=== PATIENT | female | born 1975 | race Caucasian/White ===

== ENCOUNTER 2019-01-01 09:27 | Inpatient (IN) | payer MEDICARE ==
[~2019-01-01] VITALS: Ht 167.6 cm; Wt 118.6 kg
[~2019-01-01 09:27] MED LIST: ACET-704 PO; BENZ1TAB5 PO; CLIN150C14 PO; CLON1TAB PO; DIVA500T2 PO; HYDR-3164 PO; HYDR50CA PO; IPRA3AMP29 NEB; PRAZ1CAP2 PO; TRAM50TA PO; UMEC62.5 IH; VENTOLIN HFA18 GM INH; ZIPR40CA2 PO
[2019-01-01] MEDS ORDERED: HYDROcodone/APAP 5/325MG 1 TAB TABLET PO ONE (10:00)
--- NOTE | 2019-01-01 10:01 | PHYS DOC ---
Past Medical History Past Medical History: Anxiety, Bipolar, Depression, Schizophrenia (ANDRES MAN APRN) Past Surgical History: , Other Additional Past Surgical Histo: left arm (ANDRES MAN APRN) Alcohol Use: Sober Drug Use: None (ANDRES MAN APRN) Attending Signature I have participated in the care of this patient and I have reviewed and agree with all pertinent clinical information above including history, exam, and recommendations. (ASHLEY ROJAS MD) Adult General Chief Complaint Chief Complaint: LOWER EXT PAIN HPI HPI Patient is a 43 year old female that presents with left foot pain after having a surgery on her left foot on Friday. The patient is a diabetic and it appears they did a washout of the foot infection. The patient states she has not been checking her sugars at home, but has been taking Bactrim and Keflex. She states her pain as 8 out of 10 in severity and has not been improved ibuprofen Tylenol at home. He states that she's noticed some drainage from the foot. (ANDRES MAN APRN) Review of Systems Review of Systems Constitutional: Denies fever or chills [] Eyes: Denies change in visual acuity, redness, or eye pain [] HENT: Denies nasal congestion or sore throat [] Respiratory: Denies cough or shortness of breath [] Cardiovascular: No additional information not addressed in HPI [] GI: Denies abdominal pain, nausea, vomiting, bloody stools or diarrhea [] : Denies dysuria or hematuria [] Musculoskeletal: Reports L foot pain Integument: Denies rash or skin lesions [] Neurologic: Denies headache, focal weakness or sensory changes [] Endocrine: Denies polyuria or polydipsia [] Complete systems were reviewed and found to be within normal limits, except as documented in this note. (ANDRES MAN APRN) Current Medications Current Medications Current Medications Medications (Trade) Dose Ordered Sig/Hudson Start Time Stop Time Status Last Admin Dose Admin Acetaminophen/ Hydrocodone Bitart (Lortab 5/325) 1 tab 1X ONCE 01/01/19 10:00 01/01/19 10:07 DC 01/01/19 10:11 1 TAB Sodium Chloride 1,000 ml @ 1,000 mls/hr 1X ONCE 01/01/19 11:15 01/01/19 12:14 DC Vancomycin HCl 2 gm/Sodium Chloride 500 ml @ 250 mls/hr 1X ONCE 01/01/19 12:00 01/01/19 13:59 DC 01/01/19 12:33 250 MLS/HR (ASHLEY ROJAS MD) Allergies Allergies Allergies Coded Allergies Type Severity Reaction Last Updated Verified aspirin Allergy Intermediate 10/16/15 Yes haloperidol Allergy Intermediate 10/16/15 Yes tramadol Allergy Intermediate 12/27/18 Yes (ASHLEY ROJAS MD) Physical Exam Physical Exam Constitutional: Well developed, well nourished, no acute distress, non-toxic appearance. [] HENT: Normocephalic, atraumatic, bilateral external ears normal, oropharynx moist, no oral exudates, nose normal. [] Eyes: PERRLA, EOMI, conjunctiva normal, no discharge. [] Neck: Normal range of motion, no tenderness, supple, no stridor. [] Cardiovascular:Heart rate regular rhythm, no murmur [] Lungs & Thorax: Bilateral breath sounds clear to auscultation [] Abdomen: Bowel sounds normal, soft, no tenderness, no masses, no pulsatile masses. [] Skin: Warm, dry, no erythema, no rash. [] Back: No tenderness, no CVA tenderness. [] Extremities: left foot is tender around left lateral proximal to the 5th digit. There are 2 sutures in the wound and has erythema and tenderness. Neurologic: Alert and oriented X 3, normal motor function, normal sensory function, no focal deficits noted. [] Psychologic: Affect normal, judgement normal, mood normal. [] (ANDRES MAN APRN) Current Patient Data Vital Signs Vital Signs Date Time Temp Pulse Resp B/P (MAP) Pulse Ox O2 Delivery O2 Flow Rate FiO2 01/01/19 12:00 82 16 168/112 (130) 96 Room Air 01/01/19 09:30 98.0 98.0 (ASHLEY ROJAS MD) Lab Values Laboratory Tests Test 01/01/19 10:27 White Blood Count 8.1 x10^3/uL (4.0-11.0) Red Blood Count 3.78 x10^6/uL (3.50-5.40) Hemoglobin 12.7 g/dL (12.0-15.5) Hematocrit 36.3 % (36.0-47.0) Mean Corpuscular Volume 96 fL (79-100) Mean Corpuscular Hemoglobin 34 pg (25-35) Mean Corpuscular Hemoglobin Concent 35 g/dL (31-37) Red Cell Distribution Width 13.4 % (11.5-14.5) Platelet Count 217 x10^3/uL (140-400) Neutrophils (%) (Auto) 58 % (31-73) Lymphocytes (%) (Auto) 26 % (24-48) Monocytes (%) (Auto) 13 % (0-9) H Eosinophils (%) (Auto) 2 % (0-3) Basophils (%) (Auto) 1 % (0-3) Neutrophils # (Auto) 4.7 x10^3/uL (1.8-7.7) Lymphocytes # (Auto) 2.1 x10^3/uL (1.0-4.8) Monocytes # (Auto) 1.0 x10^3/uL (0.0-1.1) Eosinophils # (Auto) 0.2 x10^3/uL (0.0-0.7) Basophils # (Auto) 0.1 x10^3/uL (0.0-0.2) Sodium Level 141 mmol/L (136-145) Potassium Level 4.0 mmol/L (3.5-5.1) Chloride Level 104 mmol/L (98-107) Carbon Dioxide Level 27 mmol/L (21-32) Anion Gap 10 (6-14) Blood Urea Nitrogen 7 mg/dL (7-20) Creatinine 0.7 mg/dL (0.6-1.0) Estimated GFR (Cockcroft-Gault) 92.2 BUN/Creatinine Ratio 10 (6-20) Glucose Level 179 mg/dL (70-99) H Lactic Acid Level 2.3 mmol/L (0.4-2.0) H Calcium Level 9.4 mg/dL (8.5-10.1) Total Bilirubin 0.2 mg/dL (0.2-1.0) Aspartate Amino Transferase (AST) 15 U/L (15-37) Alanine Aminotransferase (ALT) 27 U/L (14-59) Alkaline Phosphatase 108 U/L (46-116) Total Protein 7.2 g/dL (6.4-8.2) Albumin 3.3 g/dL (3.4-5.0) L Albumin/Globulin Ratio 0.8 (1.0-1.7) L Laboratory Tests 01/01/19 10:27 Laboratory Tests 01/01/19 10:27 (ASHLEY ROJAS MD) Lab Values Laboratory Tests Test 01/01/19 10:27 White Blood Count 8.1 x10^3/uL (4.0-11.0) Red Blood Count 3.78 x10^6/uL (3.50-5.40) Hemoglobin 12.7 g/dL (12.0-15.5) Hematocrit 36.3 % (36.0-47.0) Mean Corpuscular Volume 96 fL (79-100) Mean Corpuscular Hemoglobin 34 pg (25-35) Mean Corpuscular Hemoglobin Concent 35 g/dL (31-37) Red Cell Distribution Width 13.4 % (11.5-14.5) Platelet Count 217 x10^3/uL (140-400) Neutrophils (%) (Auto) 58 % (31-73) Lymphocytes (%) (Auto) 26 % (24-48) Monocytes (%) (Auto) 13 % (0-9) H Eosinophils (%) (Auto) 2 % (0-3) Basophils (%) (Auto) 1 % (0-3) Neutrophils # (Auto) 4.7 x10^3/uL (1.8-7.7) Lymphocytes # (Auto) 2.1 x10^3/uL (1.0-4.8) Monocytes # (Auto) 1.0 x10^3/uL (0.0-1.1) Eosinophils # (Auto) 0.2 x10^3/uL (0.0-0.7) Basophils # (Auto) 0.1 x10^3/uL (0.0-0.2) Sodium Level 141 mmol/L (136-145) Potassium Level 4.0 mmol/L (3.5-5.1) Chloride Level 104 mmol/L (98-107) Carbon Dioxide Level 27 mmol/L (21-32) Anion Gap 10 (6-14) Blood Urea Nitrogen 7 mg/dL (7-20) Creatinine 0.7 mg/dL (0.6-1.0) Estimated GFR (Cockcroft-Gault) 92.2 BUN/Creatinine Ratio 10 (6-20) Glucose Level 179 mg/dL (70-99) H Lactic Acid Level 2.3 mmol/L (0.4-2.0) H Calcium Level 9.4 mg/dL (8.5-10.1) Total Bilirubin 0.2 mg/dL (0.2-1.0) Aspartate Amino Transferase (AST) 15 U/L (15-37) Alanine Aminotransferase (ALT) 27 U/L (14-59) Alkaline Phosphatase 108 U/L (46-116) Total Protein 7.2 g/dL (6.4-8.2) Albumin 3.3 g/dL (3.4-5.0) L Albumin/Globulin Ratio 0.8 (1.0-1.7) L Laboratory Tests 01/01/19 10:27 Laboratory Tests 01/01/19 10:27 (ANDRES MAN APRN) EKG EKG [] (ANDRES MAN APRN) Radiology/Procedures Radiology/Procedures [][facility] [address] [place] [address] IMAGING REPORT Signed PATIENT: VELIA TURPIN ACCOUNT: [id number] : 1975 LOCATION: ER AGE: 43 SEX: F EXAM STATUS: REG ER ORD. PHYSICIAN: ANDRES MAN APRN REASON: foot pain, infection, hx of diabetes PROCEDURE: FOOT LEFT 3V EXAM: 3 views left foot DATE: 01/01/2019 9:56 AM INDICATION: Foot pain, infection, history of diabetes COMPARISON: No Prior FINDINGS/ IMPRESSION: 1. Soft tissue swelling and irregularity is seen overlying the left hallux MTP joint, likely soft tissue ulceration. 2. No definite subjacent erosive/destructive change or periostitis to suggest acute osteomyelitis 3. No acute fracture or dislocation. Electronically signed by: Dmitry Ackerman MD (01/01/2019 10:26 AM) [facility] DICTATED and SIGNED BY: DMITRY ACKERMAN MD DATE: 01/01/19 1026 (ANDRES MAN APRN) Course & Med Decision Making Course & Med Decision Making Pertinent Labs and Imaging studies reviewed. (See chart for details) Pt had a cyst over her left great toe for about 5 months. She developed tendon i nfection, abscess and started draining, per her report. She was seen at [facility] wound care where an I&D is performed. She has noticed increasing pain and drainage which prompted her visit here where she had a procedure to have it cleaned out. She states she is still having drainage and pain. Will get labs and x-ray to evaluate. Labs show a lactic acid of 2.3. Will give Vanc and 2,000 mL of NS to meet 30mL/kg fluids. Used ideal body weight of [address] Vyas who agrees to admission. Will consult Ortho and order Meropenum on admission. (ANDRES MAN APRN) Dragon Disclaimer Dragon Disclaimer This electronic medical record was generated, in whole or in part, using a voice recognition dictation system. (ANDRES MAN APRN) Departure Departure Impression: Primary Impression: Diabetic foot infection Disposition: ADMITTED INPATIENT Admitting Physician: Monster Vyas (ANDRES MAN APRN) Condition: STABLE Referrals: TERRENCE ALEJANDRA MD (PCP) Date and Time of Reassessment Date: Jan 01, 2019 Time: 11:23 (ANDRES MAN APRN) Fluid Challenge Is the fluid challenge complet: No IBW Target Volume Used: Yes BMI > 30: Yes (ANDRES MAN APRN) Vital Signs Vital Signs: Vital Signs Date Time Temp Pulse Resp B/P (MAP) Pulse Ox O2 Delivery O2 Flow Rate FiO2 01/01/19 12:00 82 16 168/112 (130) 96 Room Air 01/01/19 09:30 98.0 98.0 (ASHLEY ROJAS MD) Temperature Source: Oral (ANDRES MAN APRN) Respirations Respiratory Effort: Normal, Non-Labored Respiratory Pattern: Normal (ANDRES MAN APRN) Cardiovascular Pulse Rhythm: Regular Heart: Nml rate, reg. rhythm (ANDRES MAN APRN) Lung Sounds Breath Sounds: Clear (ANDRES MAN APRN) Capillary Refil Capillary Refill: Rt Hand < 3 seconds (ANDRES MAN APRN) Peripheral Pulse Pulse Location: Radial Pulse Strength: Normal (2+) Pulse Assessment Method: NIBP (ANDRES MAN APRN) Integumentary Skin: Warm, Dry Skin Moisture: Dry Skin Turgor: Normal Skin Color: warm, dry Fingernail Color: WNL (ANDRES MAN APRN) ANDRES MAN APRN Jan 01, 2019 10:01 ASHLEY ROJAS MD Jan 02, 2019 09:30
--- NOTE | 2019-01-01 10:29 | RAD ---
EXAM: 3 views left foot DATE: 01/01/2019 9:56 AM INDICATION: Foot pain, infection, history of diabetes COMPARISON: No Prior FINDINGS/ IMPRESSION: 1. Soft tissue swelling and irregularity is seen overlying the left hallux MTP joint, likely soft tissue ulceration. 2. No definite subjacent erosive/destructive change or periostitis to suggest acute osteomyelitis 3. No acute fracture or dislocation. Electronically signed by: Dmitry Beltran MD (01/01/2019 10:26 AM) [facility]
[2019-01-01 10:34] LABS: BASO # 0.1 x10^3/uL (0.0-0.2); BASO % 1 % (0-3); EOS # 0.2 x10^3/uL (0.0-0.7); EOS % 2 % (0-3); HEMATOCRIT 36.3 % (36.0-47.0); HEMOGLOBIN 12.7 g/dL (12.0-15.5); LYMPH # 2.1 x10^3/uL (1.0-4.8); LYMPH % 26 % (24-48); MEAN CORPUSCULAR HEMOGLOBIN 34 pg (25-35); MEAN CORPUSCULAR HGB CONC 35 g/dL (31-37); MEAN CORPUSCULAR VOLUME 96 fL (79-100); MONO % 13 % (0-9); NEUT # 4.7 x10^3/uL (1.8-7.7); NEUT % 58 % (31-73); PLATELET COUNT 217 x10^3/uL (140-400); RED BLOOD COUNT 3.78 x10^6/uL (3.50-5.40); RED CELL DISTRIBUTION WIDTH 13.4 % (11.5-14.5); WHITE BLOOD COUNT 8.1 x10^3/uL (4.0-11.0)
[2019-01-01 10:55] LABS: CALCIUM 9.4 mg/dL (8.5-10.1); CREATININE 0.7 mg/dL (0.6-1.0); GFR 92.2
[2019-01-01 11:01] LABS: ALBUMIN 3.3 g/dL (3.4-5.0); ALBUMIN/GLOBULIN RATIO 0.8 (1.0-1.7); TOTAL BILIRUBIN 0.2 mg/dL (0.2-1.0); TOTAL PROTEIN 7.2 g/dL (6.4-8.2)
[2019-01-01] MEDS ORDERED: IV NORMAL SALINE 1000ML BAG 1,000 ML IV ONE ×2 (11:15)
[2019-01-01] MEDS ORDERED: VANCOMYCIN 2 GM in IV NORMAL SALINE 500ML BAG 500 ML IV ONE (12:00)
[2019-01-01] MEDS ORDERED: ONDANSETRON PF 4 MG/2 ML VIAL. IV PRN (12:30)
[2019-01-01] MEDS ORDERED: MORPHINE SULFATE 2 MG/ML VIAL. IV PRN (12:30)
[2019-01-01 13:45] VITALS: BP 157/99
[2019-01-01] MEDS ORDERED: IPRA3AMP29 NEB (14:35)
[2019-01-01] MEDS ORDERED: METF10007 PO (14:38)
[2019-01-01] MEDS ORDERED: INSU100I13 SQ (14:38)
--- NOTE | 2019-01-01 15:13 | NUR ---
Wound care: Patient seen per wound care consult. Patient has a left medial foot surgical incision from recent surgery [employer]ARCH[employer]ER. The incision is approximated with sutures. There is no drainage at this time. Incision cleansed with Chloraprep and recommended foam dressing while in hospital. There are no open wounds at this time. Wound care will sign off at this time. Bed lowered and call light in reach.
[2019-01-01] MEDS: HYDROcodone/APAP 5/325MG 1 TAB TABLET PO PRN ×2 (15:28→20:03)
[2019-01-01] MEDS: clonazePAM 0.5 MG TABLET PO PRN ×2 (15:28→21:49)
[2019-01-01] MEDS: MEROPENEM 1 GM in IV NORMAL SALINE 100ML 100 ML IV SCH ×2 (15:30→22:12)
[2019-01-01] MEDS ORDERED: ALBUTEROL SULFATE 2.5 MG/3 ML NEBU. NEB SCH (16:00)
[2019-01-01] MEDS: IPRATRPIUM/ALBUTEROL 0.5/2.5MG 3 ML NEBU. NEB SCH ×2 (16:16→20:10)
--- NOTE | 2019-01-01 16:35 | NUR ---
Pt transferred to room 430. Report called to ABBIE [place]. Pt transported via wheelchair
--- NOTE | 2019-01-01 16:40 | NUR ---
Received patient transfer from [address] [place] [address], report from ABBIE Mejia, principal technical writer agrees with head to toe assessment charted, will continue to monitor patient.
[2019-01-01] MEDS: metFORMIN 500 MG TABLET PO SCH (16:50)
[2019-01-01] MEDS ORDERED: NON FORMULARY ITEM (Albuterol Sulfate (Ventolin Hfa Inhaler) 2 PUFF) INH SCH (17:00)
[2019-01-01 19:00] VITALS: BP 133/73
[2019-01-01] MEDS: PRAZOSIN 1 MG CAPSULE. PO SCH (20:01)
[2019-01-01] MEDS: DIVALPROEX DELAYED RELEASE 500 MG TABLET.DR. PO SCH (20:02)
[2019-01-01] MEDS: hydrOXYzine 25 MG TABLET PO SCH (20:02)
[2019-01-01] MEDS: ZIPRASIDONE 20 MG CAPSULE PO SCH (20:02)
[2019-01-01] MEDS: BENZTROPINE MESYLATE 1 MG TABLET. PO SCH (20:02)
[2019-01-01] MEDS ORDERED: IPRATRPIUM/ALBUTEROL 0.5/2.5MG 3 ML NEBU. NEB SCH (21:00)
[2019-01-01] MEDS: INSULIN GLARGINE SYRINGE. SQ SCH (21:58)
[2019-01-01 23:03] VITALS: BP 127/72
[2019-01-02 03:09] VITALS: BP 116/67
[2019-01-02] MEDS: MEROPENEM 1 GM in IV NORMAL SALINE 100ML 100 ML IV SCH (05:56)
[2019-01-02] MEDS: clonazePAM 0.5 MG TABLET PO PRN ×2 (06:49→12:09)
[2019-01-02] MEDS: HYDROcodone/APAP 5/325MG 1 TAB TABLET PO PRN ×3 (06:50→18:04)
[2019-01-02 07:00] VITALS: BP 135/83
[2019-01-02] MEDS: IPRATRPIUM/ALBUTEROL 0.5/2.5MG 3 ML NEBU. NEB SCH ×4 (07:50→19:46)
[2019-01-02] MEDS ORDERED: NON FORMULARY ITEM (Umeclidinium Bromide (Incruse Ellipta) 62.5 MCG) IH SCH (09:00)
[2019-01-02] MEDS: ZIPRASIDONE 20 MG CAPSULE PO SCH ×2 (09:04→21:10)
[2019-01-02] MEDS: BENZTROPINE MESYLATE 1 MG TABLET. PO SCH ×2 (09:05→21:11)
[2019-01-02] MEDS: metFORMIN 500 MG TABLET PO SCH ×2 (09:05→17:10)
[2019-01-02] MEDS: DIVALPROEX DELAYED RELEASE 500 MG TABLET.DR. PO SCH ×2 (09:05→21:10)
[2019-01-02 11:00] VITALS: BP 150/81
[2019-01-02] MEDS: LINEZOLID 600 MG TABLET PO SCH ×2 (12:09→21:10)
--- NOTE | 2019-01-02 12:11 | PDOC ---
Provider Note Provider Note [id number] GORDO CLAYTON MD Jan 02, 2019 12:11
--- NOTE | 2019-01-02 12:24 | HP ---
ADMIT DATE: 01/02/2019 CHIEF COMPLAINT: Foot wound pain. HISTORY OF PRESENT ILLNESS: A 43-year-old white female, who about a week ago, had incision and drainage at [facility] ER of her left foot wound that appeared to be a sebaceous cyst that had gotten infected and perhaps ruptured. Wound culture was not done at that time and she was placed on Keflex and Bactrim, but failed to improve. She was admitted, given IV vancomycin, followed by Zyvox and then Zosyn and Dr. Toth did further debridement on the remaining cyst wall and closure of the wound. She went home on Keflex and Bactrim about 3-4 days prior to this admission, but states the pain had be getting slowly worse since then. She is a newly-discovered diabetic, now is on Lantus 50 units and blood sugars have been much better at home in the last week. ER evaluation showed again the left foot x-ray did not show any signs of osteomyelitis and she feels her foot is somewhat better since admission. PAST HISTORY: All meds documented in the previous records. She is a psychiatric patient. She also takes metformin for her diabetes along with the Lantus. ALLERGIES: TO ASPIRIN, HALDOL AND TRAMADOL are noted. SOCIAL HISTORY: Pretty heavy smoker. Single. Not employed. Nondrinker. FAMILY HISTORY: Unremarkable. REVIEW OF SYSTEMS: No other complaints. OBJECTIVE: ENT: All within normal limits. NECK: No masses, nodes, or bruits. LUNGS: Clear. CARDIOVASCULAR: Regular rate. No murmur. ABDOMEN: Obese, soft, nontender. EXTREMITIES: The relatively clean-looking wound on the left medial foot medial to the first MTP joint shows no fluctuance or drainage expressible and only mild periwound redness and tenderness. Good pedal pulses. No other significant findings. No streaking or adenopathy. NEUROLOGIC: Physiologic. ASSESSMENT: Infected left foot sebaceous cyst, but appears to generally be doing well despite her tobacco use and then poorly-controlled diabetes until recently. PLAN: We will add topical Polysporin and continue Zyvox and meropenem for now pending secondary cultures, which were done in the ER. Consider MRI for the possibility of osteomyelitis, but this really appears to be limited to soft tissue at this time. GORDO CLAYTON MD DR: Savannah JOB#: [id number] / [id number]
--- NOTE | 2019-01-02 13:06 | PDOC ---
Provider Note Provider Note change merrem to kinjalsyn re interaction w/ with GORDO Benjamin MD Jan 02, 2019 13:05
[2019-01-02] MEDS: BACITRACIN/POLYMYXIN B TOPICAL OINT 15GM TUBE. TP SCH ×2 (14:21→21:21)
[2019-01-02] MEDS: PIPERACILLIN/TAZOBACTAM 3.375 GM in IV NORMAL SALINE 50ML 50 ML IV SCH ×2 (14:22→18:05)
[2019-01-02 15:00] VITALS: BP 144/89
--- NOTE | 2019-01-02 15:55 | PDOC2 ---
CONSULT Date of Consult Date of Consult DATE: 01/02/19 TIME: 15:53 Reason for Consult Reason for Consult: Left great toe infection Identification/Chief Complaint Chief Complaint Left foot pain and drainage Source Source: Chart review, Patient History of Present Illness Reason for Visit: This 43-year-old woman had surgery about [address] Toth for a left great toe infection. She went home with oral antibiotics as well as intravenous antibiotics through a PICC. She had increasing pain and swelling and was readmitted. She probably has not been elevating her foot very much. Just being in the hospital one night she notices some improvement Past Medical History Cardiovascular: No pertinent hx Pulmonary: COPD GI: No pertinent hx Renal/: Urinary Incontinence Endocrine: No pertinent hx Past Surgical History Past Surgical History: , Other Family History Family History: Heart Disease Social History ALCOHOL: occassional Drugs: None Current Problem List Problem List Problems Medical Problems: (1) Diabetic foot infection Status: Acute Current Medications Current Medications Current Medications Acetaminophen/ Hydrocodone Bitart (Lortab 5/325) 1 tab 1X ONCE PO Last administered on 01/01/19at 10:11; Start 01/01/19 at 10:00; Stop 01/01/19 at 10:07; Status DC Sodium Chloride 1,000 ml @ 1,000 mls/hr 1X ONCE IV Last administered on 01/01/19at 12:33; Start 01/01/19 at 11:15; Stop 01/01/19 at 12:14; Status DC Vancomycin HCl 2 gm/Sodium Chloride 500 ml @ 250 mls/hr 1X ONCE IV Last administered on 01/01/19at 12:33; Start 01/01/19 at 12:00; Stop 01/01/19 at 13:59; Status DC Sodium Chloride 1,000 ml @ 1,000 mls/hr 1X ONCE IV ; Start 01/01/19 at 11:15; Stop 01/01/19 at 12:14; Status DC Meropenem 1 gm/ Sodium Chloride 100 ml @ 200 mls/hr Q8HRS IV Last administered on 01/02/19at 05:56; Start 01/01/19 at 13:00; Stop 01/02/19 at 12:25; Status DC Ondansetron HCl (Zofran) 4 mg PRN Q8HRS PRN IV NAUSEA/VOMITING; Start 01/01/19 at 12:30; Stop 01/02/19 at 12:29; Status DC Morphine Sulfate (Morphine Sulfate) 2 mg PRN Q2HR PRN IV PAIN; Start 01/01/19 at 12:30; Stop 01/01/19 at 14:59; Status DC Benztropine Mesylate (Cogentin) 1 mg BID PO Last administered on 01/02/19 09:05; Start 01/01/19 at 21:00 Divalproex Sodium (Depakote) 1,000 mg HS PO Last administered on 01/01/19 20:02; Start 01/01/19 at 21:00 Divalproex Sodium (Depakote) 500 mg DAILY PO Last administered on 01/02/19 09:05; Start 01/02/19 at 09:00 Albuterol/ Ipratropium (Duoneb) 3 ml BID NEB ; Start 01/01/19 at 21:00; Status Cancel Prazosin HCl (Minipress) 1 mg HS PO Last administered on 01/01/19 20:01; Start 01/01/19 at 21:00 Non-Formulary Medication (Albuterol Sulfate (Ventolin Hfa Inhaler)) 2 puff QID I NH ; Start 01/01/19 at 17:00; Status UNV Clonazepam (KlonoPIN) 1 mg PRN BID PRN PO PSYCHOSIS Last administered on 01/02/19 12:09; Start 01/01/19 at 15:15 Hydroxyzine HCl (Atarax) 100 mg QHS PO Last administered on 01/01/19 20:02; Start 01/01/19 at 21:00 Insulin Glargine (Lantus Syringe) 50 unit QHS SQ Last administered on 01/01/19 21:58; Start 01/01/19 at 21:00 Metformin HCl (Glucophage) 1,000 mg BIDWMEALS PO Last administered on 01/02/19 09:05; Start 01/01/19 at 17:00 Non-Formulary Medication (Umeclidinium [place] (Incruse Ellipta)) 62.5 mcg DAILY IH ; Start 01/02/19 at 09:00; Status UNV Ziprasidone (Geodon) 40 mg BID PO Last administered on 01/02/19 09:04; Start 01/01/19 at 21:00 Acetaminophen/ Hydrocodone Bitart (Lortab 5/325) 1 tab PRN QID PRN PO MODERATE PAIN Last administered on 01/02/19at 12:09; Start 01/01/19 at 15:00 Albuterol Sulfate (Ventolin Neb Soln) 2.5 mg RTQID NEB ; Start 01/01/19 at 16:00; Status UNV Albuterol/ Ipratropium (Duoneb) 3 ml RTQID NEB Last administered on 01/02/19at 11:37; Start 01/01/19 at 16:00 Linezolid (Zyvox) 600 mg BID PO Last administered on 01/02/19 12:09; Start 01/02/19 at 12:30 Bacitracin/ Polymyxin B Sulfate (Polysporin) 1 elías BID TP Last administered on 01/02/19 14:21; Start 01/02/19 at 12:30 Piperacillin Sod/ Tazobactam Sod 3.375 gm/Sodium Chloride 50 ml @ 100 mls/hr Q6HRS IV Last administered on 01/02/19at 14:22; Start 01/02/19 at 13:00 Lactobacillus Rhamnosus (Culturelle) 1 cap BID PO ; Start 01/02/19 at 21:00 Active Scripts Active Reported Lantus Solostar (Insulin Glargine,Hum.rec.anlog) 100 Unit/1 Ml Insuln.pen 50 Un it SQ QHS Metformin Hcl 1,000 Mg Tablet 1,000 Mg PO BIDWMEALS Duoneb 0.5-3(2.5) Mg/3 Ml (Albuterol/Ipratropium) 3 Ml Ampul.neb 3 Ml NEB BID Ventolin Hfa Inhaler (Albuterol Sulfate) 18 Gm Hfa.aer.ad 2 Puff INH QID Incruse Ellipta (Umeclidinium [place]) 62.5 Mcg Blst.w.dev 62.5 Mcg IH DAILY Vistaril (Hydroxyzine Pamoate) 50 Mg Capsule 100 Mg PO HS Benztropine Mesylate 1 Mg Tablet 1 Mg PO BID Geodon (Ziprasidone Hcl) 40 Mg Capsule 1 Cap PO BID Klonopin (Clonazepam) 1 Mg Tablet 1 Mg PO BID PRN Prazosin Hcl 1 Mg Capsule 1 Mg PO HS Depakote (Divalproex Sodium) 500 Mg Tablet. 1,000 Mg PO HS Depakote (Divalproex Sodium) 500 Mg Tablet. 500 Mg PO DAILY Allergies Allergies: Coded Allergies: aspirin (Verified Allergy, Intermediate, 10/16/15) dizzy haloperidol (Verified Allergy, Intermediate, 10/16/15) tramadol (Verified Allergy, Intermediate, 12/27/18) Physical Exam Extremities: Other (I examined the left great toe and remove the dressing. The sutured incision is intact with some eschar but no drainage. There is minimal swelling, minimal erythema, this all appears to be healing without complication. I don't see any need for surgical drainage at this time) Vitals VITALS Vital Signs Date Time Temp Pulse Resp B/P (MAP) Pulse Ox O2 Delivery O2 Flow Rate FiO2 01/02/19 13:43 97 01/02/19 11:38 Room Air 01/02/19 11:00 97.7 86 16 150/81 (104) 97.7 Labs Labs Laboratory Tests Test 01/01/19 10:27 01/01/19 14:25 01/01/19 16:48 01/01/19 20:31 White Blood Count 8.1 x10^3/uL (4.0-11.0) Red Blood Count 3.78 x10^6/uL (3.50-5.40) Hemoglobin 12.7 g/dL (12.0-15.5) Hematocrit 36.3 % (36.0-47.0) Mean Corpuscular Volume 96 fL (79-100) Mean Corpuscular Hemoglobin 34 pg (25-35) Mean Corpuscular Hemoglobin Concent 35 g/dL (31-37) Red Cell Distribution Width 13.4 % (11.5-14.5) Platelet Count 217 x10^3/uL (140-400) Neutrophils (%) (Auto) 58 % (31-73) Lymphocytes (%) (Auto) 26 % (24-48) Monocytes (%) (Auto) 13 % (0-9) Eosinophils (%) (Auto) 2 % (0-3) Basophils (%) (Auto) 1 % (0-3) Neutrophils # (Auto) 4.7 x10^3/uL (1.8-7.7) Lymphocytes # (Auto) 2.1 x10^3/uL (1.0-4.8) Monocytes # (Auto) 1.0 x10^3/uL (0.0-1.1) Eosinophils # (Auto) 0.2 x10^3/uL (0.0-0.7) Basophils # (Auto) 0.1 x10^3/uL (0.0-0.2) Sodium Level 141 mmol/L (136-145) Potassium Level 4.0 mmol/L (3.5-5.1) Chloride Level 104 mmol/L (98-107) Carbon Dioxide Level 27 mmol/L (21-32) Anion Gap 10 (6-14) Blood Urea Nitrogen 7 mg/dL (7-20) Creatinine 0.7 mg/dL (0.6-1.0) Estimated GFR (Cockcroft-Gault) 92.2 BUN/Creatinine Ratio 10 (6-20) Glucose Level 179 mg/dL (70-99) Lactic Acid Level 2.3 mmol/L (0.4-2.0) 2.1 mmol/L (0.4-2.0) Calcium Level 9.4 mg/dL (8.5-10.1) Total Bilirubin 0.2 mg/dL (0.2-1.0) Aspartate Amino Transf (AST/SGOT) 15 U/L (15-37) Alanine Aminotransferase (ALT/SGPT) 27 U/L (14-59) Alkaline Phosphatase 108 U/L (46-116) Total Protein 7.2 g/dL (6.4-8.2) Albumin 3.3 g/dL (3.4-5.0) Albumin/Globulin Ratio 0.8 (1.0-1.7) Glucose (Fingerstick) 152 mg/dL (70-99) 161 mg/dL (70-99) Test 01/02/19 07:52 01/02/19 11:18 Glucose (Fingerstick) 150 mg/dL (70-99) 153 mg/dL (70-99) Laboratory Tests Test 01/01/19 16:48 01/01/19 20:31 01/02/19 07:52 01/02/19 11:18 Glucose (Fingerstick) 152 mg/dL (70-99) 161 mg/dL (70-99) 150 mg/dL (70-99) 153 mg/dL (70-99) Assessment/Plan Assessment/Plan Left great toe infection. I believe hospitalization will help this, which will help to enforce the elevation and ice, and make sure she gets the antibiotics on time. I don't see the need for additional surgery at this time. She should remain nonweightbearing on the toe. ROWAN MCGRAW MD Jan 02, 2019 15:55
[2019-01-02 19:00] VITALS: BP 180/90
[2019-01-02] MEDS: LACTOBACILLUS RHAMNOSUS GG 1 CAPSULE. PO SCH (21:10)
[2019-01-02] MEDS: hydrOXYzine 25 MG TABLET PO SCH (21:10)
[2019-01-02] MEDS: PRAZOSIN 1 MG CAPSULE. PO SCH (21:10)
[2019-01-02] MEDS: INSULIN GLARGINE SYRINGE. SQ SCH (21:19)
[2019-01-02 23:00] VITALS: BP 142/84
[2019-01-03] MEDS: PIPERACILLIN/TAZOBACTAM 3.375 GM in IV NORMAL SALINE 50ML 50 ML IV SCH ×4 (00:22→17:23)
[2019-01-03] MEDS: HYDROcodone/APAP 5/325MG 1 TAB TABLET PO PRN ×4 (00:28→18:14)
[2019-01-03 03:00] VITALS: BP 132/81
[2019-01-03] MEDS: clonazePAM 0.5 MG TABLET PO PRN ×2 (05:27→12:18)
[2019-01-03 07:00] VITALS: BP 130/80
[2019-01-03] MEDS: IPRATRPIUM/ALBUTEROL 0.5/2.5MG 3 ML NEBU. NEB SCH ×4 (07:31→19:25)
[2019-01-03] MEDS: BACITRACIN/POLYMYXIN B TOPICAL OINT 15GM TUBE. TP SCH ×2 (08:30→20:46)
[2019-01-03] MEDS: ZIPRASIDONE 20 MG CAPSULE PO SCH ×2 (08:31→20:44)
[2019-01-03] MEDS: LACTOBACILLUS RHAMNOSUS GG 1 CAPSULE. PO SCH ×2 (08:42→20:43)
[2019-01-03] MEDS: BENZTROPINE MESYLATE 1 MG TABLET. PO SCH ×2 (08:42→20:44)
[2019-01-03] MEDS: metFORMIN 500 MG TABLET PO SCH ×2 (08:42→17:21)
[2019-01-03] MEDS: DIVALPROEX DELAYED RELEASE 500 MG TABLET.DR. PO SCH ×2 (08:42→20:43)
[2019-01-03] MEDS: LINEZOLID 600 MG TABLET PO SCH ×2 (08:42→20:44)
--- NOTE | 2019-01-03 10:01 | PDOC ---
Provider Note Provider Note vss, no temp, glucose good on 50 u- no cult yet- wound looks good- will cont zyvox/zosyn another day, likely dc in am, cont topical polysporin GORDO CLAYTON MD Jan 03, 2019 10:01
[2019-01-03 11:00] VITALS: BP 157/87
[2019-01-03 15:00] VITALS: BP 123/75
[2019-01-03 19:00] VITALS: BP 159/94
[2019-01-03] MEDS: PRAZOSIN 1 MG CAPSULE. PO SCH (20:44)
[2019-01-03] MEDS: hydrOXYzine 25 MG TABLET PO SCH (20:44)
[2019-01-03] MEDS: INSULIN GLARGINE SYRINGE. SQ SCH (20:50)
[2019-01-03 23:00] VITALS: BP 126/78
[2019-01-04] MEDS: HYDROcodone/APAP 5/325MG 1 TAB TABLET PO PRN ×3 (00:22→08:14)
[2019-01-04] MEDS: PIPERACILLIN/TAZOBACTAM 3.375 GM in IV NORMAL SALINE 50ML 50 ML IV SCH ×2 (00:24→06:07)
[2019-01-04] MEDS: clonazePAM 0.5 MG TABLET PO PRN ×2 (00:24→08:14)
[2019-01-04 03:00] VITALS: BP 136/78
[2019-01-04 07:00] VITALS: BP 125/81
[2019-01-04] MEDS: ZIPRASIDONE 20 MG CAPSULE PO SCH (08:13)
[2019-01-04] MEDS: LACTOBACILLUS RHAMNOSUS GG 1 CAPSULE. PO SCH (08:13)
[2019-01-04] MEDS: metFORMIN 500 MG TABLET PO SCH (08:14)
[2019-01-04] MEDS: BENZTROPINE MESYLATE 1 MG TABLET. PO SCH (08:14)
[2019-01-04] MEDS: DIVALPROEX DELAYED RELEASE 500 MG TABLET.DR. PO SCH (08:14)
[2019-01-04] MEDS: IPRATRPIUM/ALBUTEROL 0.5/2.5MG 3 ML NEBU. NEB SCH (08:17)
[2019-01-04] MEDS: BACITRACIN/POLYMYXIN B TOPICAL OINT 15GM TUBE. TP SCH (08:20)
--- NOTE | 2019-01-04 08:23 | PDOC ---
Provider Note Provider Note [id number] GORDO CLAYTON MD Jan 04, 2019 08:23
--- NOTE | 2019-01-04 09:04 | DS ---
DATE OF DISCHARGE: 01/04/2019 HOSPITAL SUMMARY: A 43-year-old white female who recently had an infected sebaceous cyst opened and drained and then debrided on the left medial foot, came back in with increasing foot pain despite oral antibiotic therapy. Wound cultures had never been obtained after the initial surgery and no growth have been obtained. Subsequent stool pathogens are not known. CBC and chemistry profile all are within normal limits and blood sugar control was excellent control with newly diagnosed diabetes with insulin and metformin. Wound culture pending, but no organisms are seen on Gram stain. She had 2 days of oral Zyvox and IV Zosyn and wound is still looking good with the addition of Polysporin cream and she is afebrile. Dr. Glez has seen as well and is comfortable with outpatient care and no further intervention with sutures remaining in place. FINAL DIAGNOSES: 1. Cellulitis and abscess of left medial foot. 2. Insulin-dependent diabetes mellitus. OPERATIONS, PROCEDURES, COMPLICATIONS: None. CONSULTATIONS: Dr. Glez. DISPOSITION: Continues on oral Septra and Keflex; metformin and Lantus for diabetes and all psych meds the same. Office followup with Dr. Vyas in 4-5 days. Suture out probably in about another 5 days as well. GORDO VYAS MD DR: UMER/jose JOB#: [id number] / [id number]
--- NOTE | 2019-01-04 12:00 | NUR ---
Discharge: Pt DC to home per facility transportation. All belongings returned with pt, including 2 packs of cigarettes. IV DC'ed by Izabella LEIVA, DC instructions understood by pt. No concerns.
== END 2019-01-04 12:00 | disposition home or self-care (01) | DRG 603 ==
LOC: ER 09:27 → 6 SOUTH 12:22 → 4 NORTH 16:40
PROVIDERS: ADMIT Family Medicine; ATTEND Family Medicine
DX: L03.116 Cellulitis of left lower limb (principal); L08.9 Local infection of the skin and subcutaneous tissue, unspecified; E11.628 Type 2 diabetes mellitus with other skin complications; F17.200 Nicotine dependence, unspecified, uncomplicated; F20.9 Schizophrenia, unspecified; F31.9 Bipolar disorder, unspecified; J44.9 Chronic obstructive pulmonary disease, unspecified; Z79.4 Long term (current) use of insulin; F41.9 Anxiety disorder, unspecified; Z79.84 Long term (current) use of oral hypoglycemic drugs
CPT/HCPCS: 36415; 73630; 80053; 82962; 83605; 85025; 87040; 87071; 87075; 94640; 94760; 96365; J1815; J2185; J2543; J3370; J7030; J7040; J7620; 99285-25; G0378